=== PATIENT | male | born 1980 | race Two or more races ===

== ENCOUNTER 2018-11-23 21:14 | Emergency (ER) | payer OTHER ==
[2018-11-24] MEDS ORDERED: OXYCODONE-ACETAMINOPHEN 5-325 MG TABLET PO ONE (01:14)
[2018-11-24] MEDS ORDERED: ONDANSETRON 4 MG TAB.RAPDIS PO ONE (01:14)
--- NOTE | 2018-11-24 01:16 | ER Document Report ---
ED Medical Screen (RME) - General Chief Complaint: Flank Pain Stated Complaint: KIDNEY PROBLEMS/BLOOD IN URINE/STOOL Time Seen by Provider: 11/24/18 01:01 Notes: 38-year-old male, chief complaint of flank pain and hematuria. This is been going on since Wednesday. Pain is intermittently sharp. He also states he thinks he is having blood in his bowel movements. He is on Coumadin. He is visiting up here from [place]. He does have a history of kidney stones reportedly. - Related Data Allergies/Adverse Reactions: No Known Allergies Allergy (Unverified 11/23/18 21:17) Physical Exam - General General appearance: Appears well In distress: None - Back Back: Tender - Complains with right CVA palpation Course - Re-evaluation Re-evalutation: Patient does not appear to be in distress, however he is complaining of pain, borderline right CVA tenderness, reporting hematuria as well. Also on Coumadin. Workup pending. I have greeted and performed a rapid initial assessment of this patient. A co mprehensive ED assessment and evaluation of the patient, analysis of test results and completion of the medical decision making process will be conducted by additional ED providers.
[2018-11-24] MEDS ORDERED: OXYCODONE-ACETAMINOPHEN 5-325 MG TABLET ONE (01:26)
[2018-11-24 02:22] LABS: ABSOLUTE BASOPHILS # (AUTO) 0.1 10^3/uL (0.0-0.2); ABSOLUTE EOSINOPHILS # (AUTO) 0.6 10^3/uL (0.0-0.6); ABSOLUTE LYMPHOCYTES (AUTO) 4.3 10^3/uL (0.5-4.7); ABSOLUTE MONOCYTES (AUTO) 0.9 10^3/uL (0.1-1.4); ABSOLUTE NEUT (AUTO) 5.7 10^3/uL (1.7-8.2); BASOPHILS % (AUTO) 0.9 % (0-2); EOSINOPHILS % (AUTO) 5.2 % (0-6); HEMOGLOBIN 19.4 g/dL (13.5-17.0); LYMPHOCYTES % (AUTO) 37.2 % (13-45); MEAN CORPUSCULAR HEMOGLOBIN 28.7 pg (27.0-33.4); MEAN CORPUSCULAR HGB CONC 33.7 g/dL (32.0-36.0); MEAN CORPUSCULAR VOLUME 85 fl (80-97); MONOCYTES % (AUTO) 7.4 % (3-13); PLATELET COUNT 212 10^3/uL (150-450); RED BLOOD COUNT 6.76 10^6/uL (4.35-5.55); RED CELL DISTRIBUTION WIDTH 16.5 % (11.5-14.0); SEGMENTED NEUTROPHILS % (AUTO) 49.3 % (42-78); TOTAL CELLS COUNTED % (AUTO) 100 %; WHITE BLOOD COUNT 11.6 10^3/uL (4.0-10.5)
[2018-11-24 02:24] LABS: HEMATOCRIT 57.6 % (37.9-51.0)
[2018-11-24 02:28] LABS: INTERNATIONAL RATION (INR) 0.89; PROTHROMBIN TIME 12.5 SEC (11.4-15.4)
[2018-11-24 02:40] LABS: APPEARANCE,URINE SLIGHTLY-CLOUDY; BILIRUBIN,URINE NEGATIVE (NEGATIVE); COLOR,URINE YELLOW; GLUCOSE, URINE NEGATIVE (NEGATIVE); KETONES,URINE NEGATIVE (NEGATIVE); LEUKOCYTE ESTERASE,URINE NEGATIVE (NEGATIVE); NITRITE,URINE NEGATIVE (NEGATIVE); PROTEIN,URINE >=500 mg/dL (NEGATIVE); URINE SPECIFIC GRAVITY 1.012; UROBILINOGEN,URINE NEGATIVE mg/dL (<2.0)
[2018-11-24 02:42] LABS: ALANINE AMINOTRANSFERASE 39 U/L (21-72); ALKALINE PHOSPHATASE 62 U/L (38-126); ANION GAP 6 (5-19); ASPARTATE AMINO TRANSFERASE 35 U/L (17-59); BILIRUBIN,DIRECT 0.2 mg/dL (0.0-0.4); BILIRUBIN,TOTAL 0.3 mg/dL (0.2-1.3); BLOOD UREA NITROGEN 18 mg/dL (7-20); CALCIUM 9.5 mg/dL (8.4-10.2); CARBON DIOXIDE 25 mmol/L (22-30); CHLORIDE 108 mmol/L (98-107); GLUCOSE 122 mg/dL (75-110); POTASSIUM 4.3 mmol/L (3.6-5.0); SODIUM 138.8 mmol/L (137-145); TOTAL PROTEIN 5.8 g/dL (6.3-8.2)
--- NOTE | 2018-11-24 03:27 | RADIOLOGY REPORT (SQ) ---
EXAM DESCRIPTION: CT ABDOMEN PELVIS WITHOUT IV CONTRAST COMPLETED DATE/TME: 11/24/2018 01:12 CLINICAL HISTORY: 38 years Male, BILAT flank pain, hematuria Comparison: None. Technique: No contrast. Coronal and sagittal reformat. This exam was performed according to our departmental dose-optimization program, which includes automated exposure control, adjustment of the mA and/or kV according to patient size and/or use of iterative reconstruction technique.[facility]: Dose Right [facility]: CareDose [facility]: Dose Right [facility]: Teradose 4D [facility]: [employer] LIMITATIONS: None Findings: Bilateral mild perinephric fat stranding, nonspecific. Colonic fluid retention. Moderate, asymmetric, wide posterior L5-S1 disc protrusion-osteophyte complex, left more than right causes moderate to severe left L5 foraminal stenosis and mild-moderate spinal and right foraminal stenosis. No ascites. No pneumoperitoneum. No bowel obstruction. No hydronephrosis or hydroureter. No renal/ureteral stone. Normal appendix. No gross evidence of gallbladder inflammation or hepatobiliary obstruction. No evidence of abdominal aortic aneurysm. Unenhanced lower thorax, abdominopelvic structures, and musculoskeleton appear otherwise grossly unremarkable. Impression: 1. Moderate L5-S1 disc protrusion causes moderate-severe left L5 foraminal stenosis. 2. Mild nonspecific perinephric fat stranding bilaterally. Different diagnosis includes pyelonephritis and chronic medical renal disease.
--- NOTE | 2018-11-24 03:30 | ER Document Report ---
ED GI/ - General Chief Complaint: Flank Pain Stated Complaint: KIDNEY PROBLEMS/BLOOD IN URINE/STOOL Time Seen by Provider: 11/24/18 01:01 Notes: Patient is a 38 year old male that comes to the emergency department for chief complaint of flank pain and hematuria. He states this is been going on since Wednesday. Pain is intermittently sharp. He states he also thinks he is having blood in his bowel movements, he has had some black bowel movements since Wednesday. He is on Coumadin, he states that this was because he had blood clots, he has been on this for the past 2 months, however he states he ran out of his Coumadin and regular medications. He also reports a history of kidney stones. His primary care provider is in [place]. - Related Data Allergies/Adverse Reactions: No Known Allergies Allergy (Unverified 11/23/18 21:17) Past Medical History - General Information source: Patient - Social History Smoking Status: Never Smoker Frequency of alcohol use: None Drug Abuse: None Lives with: Family Family History: Reviewed & Not Pertinent - Past Medical History Cardiac Medical History: Reports: Hx DVT, Hx Hypercholesterolemia, Hx Hypertensi on Renal/ Medical History: Reports: Hx Kidney Stones GI Medical History: Reports: Hx Gastroesophageal Reflux Disease - Immunizations Immunizations up to date: Yes Hx Diphtheria, Pertussis, Tetanus Vaccination: Yes Review of Systems - Review of Systems Constitutional: No symptoms reported EENT: No symptoms reported Cardiovascular: No symptoms reported Respiratory: No symptoms reported Gastrointestinal: See HPI Genitourinary: See HPI Male Genitourinary: No symptoms reported Musculoskeletal: No symptoms reported Skin: No symptoms reported Hematologic/Lymphatic: No symptoms reported Neurological/Psychological: No symptoms reported Physical Exam - Vital signs Vitals: Temp Pulse Resp BP Pulse Ox 97.5 F 66 20 136/89 H 97 11/24/18 05:20 11/24/18 05:20 11/24/18 05:20 11/24/18 05:20 11/24/18 05:20 - Notes Notes: GENERAL: Alert, interacts well. No acute distress. HEAD: Normocephalic, atraumatic. EYES: Pupils equal, round, and reactive to light. Extraocular movements intact. ENT: Oral mucosa moist, tongue midline. Oropharynx unremarkable. Airway patent. Nares patent, no nasal septal hematoma, TM's intact. NECK: Full range of motion. Supple. Trachea midline. LUNGS: Clear to auscultation bilaterally, no wheezes, rales, or rhonchi. No respiratory distress. HEART: Regular rate and rhythm. No murmur ABDOMEN: Soft, non-tender. Non-distended. Bowel sounds present in all 4 quadrants. GENITOURINARY: Deferred EXTREMITIES: Moves all 4 extremities spontaneously. No edema, normal radial and dorsalis pedis pulses bilaterally. No cyanosis. BACK: no cervical, thoracic, lumbar midline tenderness. No saddle anesthesia, normal distal neurovascular exam. No tenderness in the back on second examination. NEUROLOGICAL: Alert and oriented x3. Normal speech. [cranial nerves II through XII grossly intact]. PSYCH: Normal affect, normal mood. SKIN: Warm, dry, normal turgor. No rashes or lesions noted. Course - Re-evaluation Re-evalutation: Patient does not appear to be in distress, he was given pain medication and nausea medication. He is smiling and well-appearing afterwards. Vital signs unremarkable. Lungs clear, abdomen does not show any tenderness. Denies any neurological deficits. No deficits noted on exam. CBC shows elevated hemoglobin, otherwise unremarkable. Chemistry nonspecific. Urinalysis does not show concerning infection or hematuria. Patient is not telling me that he has been having black stools. Patient had a bowel movement, this was obtained, this was not black as patient was stating, this was not bloody, Hemoccult negative. PT/INR does show that patient is not therapeutic, however he has not had a prescription of his warfarin for some time, he has not made it back to his provider. He does not have tachycardia, tachypnea, hypoxia, or respiratory complaints on my evaluation. As result I do not suspect pulmonary embolism. CAT scan does not show chronic kidney stone, does show some stranding around the kidneys but urinalysis does not show infection, patient is asymptomatic on reevaluation. Degenerative changes in the back noted. Patient stating that he had worse flank pain before and hematuria although hematuria has now resolved. Possibly already passed a stone. I discussed results with patient in detail. Patient is requesting to have all of his main prescriptions refilled, he will follow-up with his primary care. Discussed return precautions in detail. Patient states understanding and agreement. - Vital Signs Vital signs: Temp Pulse Resp BP Pulse Ox 97.5 F 66 20 136/89 H 97 04/11/19 05:20 11/24/18 05:20 11/24/18 05:20 11/24/18 05:20 11/24/18 05:20 - Laboratory Result Diagrams: 11/24/18 00:45 11/24/18 00:45 Laboratory results interpreted by me: 11/24/18 11/24/18 11/24/18 00:45 00:45 02:00 WBC 11.6 H RBC 6.76 H Hgb 19.4 H Hct 57.6 H RDW 16.5 H Chloride 108 H Glucose 122 H Total Protein 5.8 L Albumin 3.0 L Urine Protein >=500 H Urine Blood SMALL H Discharge - Discharge Clinical Impression: Flank pain, Has run out of medications Condition: Stable Disposition: HOME, SELF-CARE Additional Instructions: You are not currently passing any kidney stones. I suspect based on your recent symptoms that you did pass a kidney stone and have had some pain from this but no current concerning findings are noted. There is no blood in your stool tonight. Refill and take your prescribed medications. Follow-up with your primary care provider. Return if you worsen including fever, vomiting, severe pain, or any other concerning or worsening symptoms. Prescriptions: Carvedilol [Coreg 3.125 mg Tablet] 3.125 mg PO Q12 #60 tablet Furosemide [Lasix 20 mg Tablet] 20 mg PO BID #60 tablet Metformin HCl [Glucophage 500 mg Tablet] 500 mg PO BIDACBS #60 tab Sildenafil Citrate [Revatio 20 mg Tablet] 20 mg PO TID #60 tablet Warfarin Sodium 5 mg PO DAILY #30 tablet
[2018-11-24 05:36] VITALS: BP 136/89
== END 2018-11-24 05:35 | disposition home or self-care (01) ==
LOC: ER 21:14
DX: R10.9 Unspecified abdominal pain (principal); R31.9 Hematuria, unspecified; M47.9 Spondylosis, unspecified; I10 Essential (primary) hypertension; Z86.718 Personal history of other venous thrombosis and embolism; Z91.14 Patient's other noncompliance with medication regimen; Z87.442 Personal history of urinary calculi; Z87.19 Personal history of other diseases of the digestive system
CPT/HCPCS: 99284; 36415; 85025; 85610; 82272; 80053; 81001; 74176; S0119

== ENCOUNTER 2019-07-10 07:43 | Emergency (ER) | payer MEDICAID, OTHER ==
[2019-07-10 08:24] LABS: ABSOLUTE BASOPHILS # (AUTO) 0.1 10^3/uL (0.0-0.2); ABSOLUTE EOSINOPHILS # (AUTO) 0.4 10^3/uL (0.0-0.6); ABSOLUTE LYMPHOCYTES (AUTO) 2.1 10^3/uL (0.5-4.7); ABSOLUTE MONOCYTES (AUTO) 0.5 10^3/uL (0.1-1.4); BASOPHILS % (AUTO) 1.1 % (0-2); EOSINOPHILS % (AUTO) 6.2 % (0-6); HEMOGLOBIN 19.9 g/dL (13.5-17.0); LYMPHOCYTES % (AUTO) 29.9 % (13-45); MEAN CORPUSCULAR HEMOGLOBIN 30.3 pg (27.0-33.4); MEAN CORPUSCULAR VOLUME 89 fl (80-97); MONOCYTES % (AUTO) 7.1 % (3-13); PLATELET COUNT 187 10^3/uL (150-450); RED BLOOD COUNT 6.57 10^6/uL (4.35-5.55); RED CELL DISTRIBUTION WIDTH 14.1 % (11.5-14.0); SEGMENTED NEUTROPHILS % (AUTO) 55.7 % (42-78); TOTAL CELLS COUNTED % (AUTO) 100 %; WHITE BLOOD COUNT 7.1 10^3/uL (4.0-10.5)
[2019-07-10 08:27] LABS: HEMATOCRIT 58.5 % (37.9-51.0)
[2019-07-10 08:52] LABS: ALBUMIN 3.5 g/dL (3.5-5.0); ALKALINE PHOSPHATASE 64 U/L (38-126); ANION GAP 6 (5-19); ASPARTATE AMINO TRANSFERASE 33 U/L (17-59); BILIRUBIN,DIRECT 0.1 mg/dL (0.0-0.4); BILIRUBIN,TOTAL 1.1 mg/dL (0.2-1.3); BLOOD UREA NITROGEN 13 mg/dL (7-20); CALCIUM 9.2 mg/dL (8.4-10.2); CARBON DIOXIDE 26 mmol/L (22-30); CHLORIDE 105 mmol/L (98-107); GLUCOSE 99 mg/dL (75-110); POTASSIUM 4.7 mmol/L (3.6-5.0); TOTAL PROTEIN 6.5 g/dL (6.3-8.2)
[2019-07-10 09:45] LABS: APPEARANCE,URINE CLEAR; BILIRUBIN,URINE NEGATIVE (NEGATIVE); COLOR,URINE YELLOW; GLUCOSE, URINE NEGATIVE (NEGATIVE); KETONES,URINE NEGATIVE (NEGATIVE); LEUKOCYTE ESTERASE,URINE NEGATIVE (NEGATIVE); NITRITE,URINE NEGATIVE (NEGATIVE); PROTEIN,URINE >=500 mg/dL (NEGATIVE); URINE SPECIFIC GRAVITY 1.014; UROBILINOGEN,URINE NEGATIVE mg/dL (<2.0)
--- NOTE | 2019-07-10 09:48 | RADIOLOGY REPORT (SQ) ---
EXAM DESCRIPTION: CHEST SINGLE VIEW COMPLETED DATE/TIME: 07/10/2019 9:19 am REASON FOR STUDY: Short of breath, prior pulmonary embolus. COMPARISON: None. EXAM PARAMETERS: NUMBER OF VIEWS: One view. TECHNIQUE: Single frontal radiographic view of the chest acquired. RADIATION DOSE: NA LIMITATIONS: None. FINDINGS: LUNGS AND PLEURA: No opacities, masses or pneumothorax. No pleural effusion. MEDIASTINUM AND HILAR STRUCTURES: No masses. Contour normal. HEART AND VASCULAR STRUCTURES: Heart normal in size. Normal vasculature. BONES: No acute findings. HARDWARE: None in the chest. OTHER: No other significant finding. IMPRESSION: NO ACUTE RADIOGRAPHIC FINDING IN THE CHEST. TECHNICAL DOCUMENTATION: JOB ID: [id number] [employer]- All Rights Reserved Reading location - IP/workstation name: [email or web address]
[2019-07-10 11:29] VITALS: BP 163/90
--- NOTE | 2019-07-10 15:10 | ER Document Report ---
Entered by FRANCISCO HOLLEY SCRIBE 07/10/19 0907 Acting as scribe for:JACY FERRER MD ED General - General Chief Complaint: Shortness Of Breath Stated Complaint: RIGHT FLANK PAIN, SHORT OF BREATH Time Seen by Provider: 07/10/19 08:30 Primary Care Provider: [facility] [Provider Group] - Follow up as needed [facility] [Outside] - Follow up as needed JUSTIN CARMONA MD [ACTIVE STAFF] - Follow up in 1 week Mode of Arrival: Ambulatory Information source: Patient Notes: This 39 year old male patient presents to the emergency department today with complaints of "feeling bad in my kidneys". Patient complains of low back pain that is musculoskeletal in nature, reproducible with certain movements and palpation. PCP: [facility] - Related Data Allergies/Adverse Reactions: No Known Allergies Allergy (Unverified 11/23/18 21:17) Home Medications: Carvedilol. Warafin. furosemide. sildenafil. ampicillin Past Medical History - General Information source: Patient - Social History Smoking Status: Never Smoker Cigarette use (# per day): No Chew tobacco use (# tins/day): No Smoking Education Provided: No Frequency of alcohol use: None Drug Abuse: Marijuana Lives with: Friend Family History: Reviewed & Not Pertinent Patient has suicidal ideation: No Patient has homicidal ideation: No - Past Medical History Cardiac Medical History: Reports: Hx DVT, Hx Hypercholesterolemia, Hx Hypertension, Hx Pulmonary Embolism Endocrine Medical History: Reports: Hx Diabetes Mellitus Type 2 Renal/ Medical History: Reports: Hx Kidney Stones GI Medical History: Reports: Hx Gastroesophageal Reflux Disease Surgical Hx: Negative - Immunizations Immunizations up to date: Yes Hx Diphtheria, Pertussis, Tetanus Vaccination: Yes Review of Systems - Review of Systems Constitutional: No symptoms reported EENT: No symptoms reported Cardiovascular: No symptoms reported Respiratory: No symptoms reported Gastrointestinal: No symptoms reported Genitourinary: No symptoms reported Male Genitourinary: No symptoms reported Musculoskeletal: See HPI, Back pain Skin: No symptoms reported Hematologic/Lymphatic: No symptoms reported Neurological/Psychological: No symptoms reported -: Yes All other systems reviewed and negative Physical Exam - Vital signs Vitals: Temp Pulse Resp BP Pulse Ox 97.3 F 74 22 H 152/91 H 99 07/10/19 07:49 07/10/19 07:49 07/10/19 07:49 07/10/19 07:49 07/10/19 07:49 - Notes Notes: Physical Exam: General: Alert, appears well. HEENT: Normocephalic. Atraumatic. PERRL. Extraocular movements intact. Oropharynx clear. Neck: Supple. Non-tender. Respiratory: No respiratory distress. Clear and equal breath sounds bilaterally. Cardiovascular: Regular rate and rhythm. Abdominal: Normal Inspection. Non-tender. No distension. Normal Bowel Sounds. Back: Lower lumbar musculature tenderness with palpation. Extremities: Moves all four extremities. Upper extremities: Normal inspection. Normal ROM. Lower extremities: Normal inspection. No edema. Normal ROM. Neurological: Normal cognition. AAOx4. Normal speech. Psychological: Normal affect. Normal Mood. Skin: Warm. Dry. Normal color. Course - Re-evaluation Re-evalutation: 07/10/19 10:09 Patient's chest x-ray is normal. The d-dimer is undetectable. Patient's hemoglobin is 19.9 Physical exam is most consistent with lumbar back muscle pain. I have advised the patient that he needs to go to donate blood at least 4 times a year due to his polycythemia and the risk it places him for blood clots, heart attack, and stroke. I do not think he needs to be on Coumadin at this time, as the pulmonary embolus event was 2 years ago at least, he has no medical care follow-up, he has no way of monitoring his INRs, and he is a very unreliable patient. I also do not think that he should be on Lasix due to his polycythemia. He should be on a blood pressure medication, I am not sure why he was on carvedilol and he does not know. 07/10/19 10:36 The patient's nurse came in who is fluent in Thai and help me review all the findings and plans for the patient. By the patient's history, no one has ever spoken him about his polycythemia, or need to have regular phlebotomy. He will be referred to Dr. Carmona from hematology, but I am not sure if he will ever go to see him. He will be referred to the [facility] or the [facility] for ongoing medical care. He is encouraged to donate blood at least 4 times a year if he does not see the manager requirements. He will be placed on lisinopril for his blood pressure. - Vital Signs Vital signs: Temp Pulse Resp BP Pulse Ox 98.0 F 63 16 163/90 H 96 07/10/19 11:24 07/10/19 11:24 07/10/19 11:24 07/10/19 11:24 07/10/19 11:24 - Laboratory Result Diagrams: 07/10/19 08:15 07/10/19 08:15 Laboratory results interpreted by me: 07/10/19 07/10/19 08:15 09:30 RBC 6.57 H Hgb 19.9 H Hct 58.5 H RDW 14.1 H Eos % (Auto) 6.2 H Urine Protein >=500 H Urine Blood SMALL H - Diagnostic Test Radiology reviewed: Image reviewed, Reports reviewed - Chest x-ray does not show acute findings. Discharge - Discharge Clinical Impression: Polycythemia Low back pain Qualifiers: Chronicity: acute Back pain laterality: right Sciatica presence: without sciatica Qualified Code(s): M54.5 - Low back pain High blood pressure Qualifiers: Hypertension type: essential hypertension Qualified Code(s): I10 - Essential (primary) hypertension Condition: Stable Disposition: HOME, SELF-CARE Additional Instructions: Low Back Pain: Three out of every four people will have an episode of disabling back pain during their lifetime. Most commonly the pain is due to straining of the muscles and ligaments in the low back. Usual treatment includes: (1) Rest on a firm surface. Avoid lying on your stomach. (2) Ice pack the painful area. After a few days, gentle heat may be used intermittently to relax the area, or ice packs can be continued. (3) Medication may be needed -- antiinflammatory medicines such as ibuprofen or Aleve are commonly used. (4) As the back improves, exercises are prescribed to strengthen the back and abdominal muscles. Your doctor will advise you on the proper care for your back at each stage in your recovery. You may be better in a few days -- or healing may take several weeks. If new symptoms of a "herniated disc" (radiation of pain, numbness, or tingling down the back of the leg or weakness in the leg) occur, you should be re-examined. Further testing may be necessary. Your physical exam today shows that your low back pain is due to a lumbar back muscle strain. Your blood work shows that you have a condition called polycythemia which is due to an excessive number of red blood cells. This can be a dangerous condition putting you at risk for heart attack, stroke and blood clots. Your blood sugars are normal, so you probably do not need to be taking the metformin you used to take. The Lasix will be stopped because you do not have any edema, and taking Lasix may cause your blood to become even thicker. You will be placed on lisinopril for your blood pressure. You should try to follow-up with Dr. Carmona, a local manager requirements for management of your polycythemia. Follow-up with the [facility] or the [facility] for management of your high blood pressure and any other medical problems. RETURN TO THE EMERGENCY ROOM IF ANY NEW OR WORSENING SYMPTOMS. Prescriptions: Lisinopril 20 mg PO DAILY #30 tablet Referrals: JUSTIN CARMONA MD [ACTIVE STAFF] - Follow up in 1 week [facility] [Outside] - Follow up as needed [facility] [Provider Group] - Follow up as needed Scribe Attestation: 07/10/19 10:41 I personally performed the services described in the documentation, reviewed and edited the documentation which was dictated to the scribe in my presence, and it accurately records my words and actions. I personally performed the services described in the documentation, reviewed and edited the documentation which was dictated to the scribe in my presence, and it accurately records my words and actions.
== END 2019-07-10 11:33 | disposition home or self-care (01) ==
LOC: ER 07:43
DX: M54.5 Low back pain (principal); D75.1 Secondary polycythemia; I10 Essential (primary) hypertension; E11.9 Type 2 diabetes mellitus without complications; F12.10 Cannabis abuse, uncomplicated; Z86.711 Personal history of pulmonary embolism; Z86.718 Personal history of other venous thrombosis and embolism; Z79.01 Long term (current) use of anticoagulants; Z79.899 Other long term (current) drug therapy; Z79.2 Long term (current) use of antibiotics
CPT/HCPCS: 36415; 71045; 80053; 81001; 83690; 85025; 85379; 99283

== ENCOUNTER 2020-08-11 11:06 | Emergency (ER) | payer MEDICAID, OTHER ==
[2020-08-11] MEDS ORDERED: ACETAMINOPHEN 325 MG TABLET PO ONE (13:03)
--- NOTE | 2020-08-11 13:03 | ER Document Report ---
ED Medical Screen (RME) - General Chief Complaint: Back Pain Stated Complaint: LOW BACK PAIN,BLOOD IN URINE Time Seen by Provider: 08/11/20 12:54 Mode of Arrival: Ambulatory Notes: 40-year-old male presented to ED for complaint of bilateral flank pain blood in his urine. He is a former dialysis patient. He does smoke a third a pack a day drinks on the weekends uses marijuana. [place] from [place] work. Patient is alert oriented respirations regular nonlabored speaking in full sentences. I have ordered blood urine and CT abdomen pelvis with no contrast. I have greeted and performed a rapid initial assessment of this patient. A comprehensive ED assessment and evaluation of the patient, analysis of test results and completion of medical decision making process will be conducted by an additional ED providers. - Related Data Allergies/Adverse Reactions: No Known Allergies Allergy (Verified 08/11/20 12:52) Past Medical History - Social History Chew tobacco use (# tins/day): No Frequency of alcohol use: None Drug Abuse: None - Past Medical History Cardiac Medical History: Reports: Hx DVT, Hx Hypercholesterolemia, Hx Hypertension, Hx Pulmonary Embolism Endocrine Medical History: Reports: Hx Diabetes Mellitus Type 2 Renal/ Medical History: Reports: Hx Kidney Stones. Denies: Hx Peritoneal Dialysis GI Medical History: Reports: Hx Gastroesophageal Reflux Disease - Immunizations Immunizations up to date: Yes Hx Diphtheria, Pertussis, Tetanus Vaccination: Yes Physical Exam - Vital signs Vitals: Temp Pulse Resp BP Pulse Ox 98.0 F 80 20 194/96 H 97 08/11/20 11:10 08/11/20 11:10 08/11/20 11:10 08/11/20 11:10 08/11/20 11:10 Course - Vital Signs Vital signs: Temp Pulse Resp BP Pulse Ox 98.0 F 80 20 194/96 H 97 08/11/20 11:10 08/11/20 11:10 08/11/20 11:10 08/11/20 11:10 08/11/20 11:10
[2020-08-11 13:48] LABS: APPEARANCE,URINE SLIGHTLY-CLOUDY; BILIRUBIN,URINE NEGATIVE (NEGATIVE); COLOR,URINE YELLOW; GLUCOSE, URINE 50 mg/dL (NEGATIVE); KETONES,URINE NEGATIVE (NEGATIVE); LEUKOCYTE ESTERASE,URINE NEGATIVE (NEGATIVE); NITRITE,URINE NEGATIVE (NEGATIVE); PROTEIN,URINE >=500 mg/dL (NEGATIVE); URINE SPECIFIC GRAVITY 1.015; UROBILINOGEN,URINE NEGATIVE mg/dL (<2.0)
--- NOTE | 2020-08-11 13:48 | RADIOLOGY REPORT (SQ) ---
EXAM DESCRIPTION: CT ABD/PELVIS NO ORAL OR IV IMAGES COMPLETED DATE/TIME: 08/11/2020 12:30 pm REASON FOR STUDY: Bilateral flank pain former dialysis patient COMPARISON: 11/24/2018 TECHNIQUE: CT scan of the abdomen and pelvis performed without intravenous or oral contrast. Images reviewed with lung, soft tissue, and bone windows. Reconstructed coronal and sagittal MPR images revi ewed. All images stored on PACS. All CT scanners at this facility use dose modulation, iterative reconstruction, and/or weight based d osing when appropriate to reduce radiation dose to as low as reasonably achievable (ALARA). [facility]: Dose Right [facility]: CareDose [facility]: Dose Right [facility]: Teradose 4D [facility]: [employer] RADIATION DOSE: CT Rad equipment meets quality standard of care and radiation dose reduction techniq ues were employed. CTDIvol: 11.5 mGy. DLP: 606 mGy-cm.mGy. LIMITATIONS: None. FINDINGS: LOWER CHEST: No significant findings. No nodules or infiltrates. NON-CONTRASTED LIVER, SPLEEN, ADRENALS: Evaluation limited by lack of IV contrast. No identified sign ificant masses. PANCREAS: No masses. No peripancreatic inflammatory changes. GALLBLADDER: No identified stones by CT criteria. No inflammatory changes to suggest cholecystitis. RIGHT KIDNEY AND URETER: No suspicious masses. Assessment limited by lack of IV contrast. No signif icant calcifications. No hydronephrosis or hydroureter. LEFT KIDNEY AND URETER: No suspicious masses. Assessment limited by lack of IV contrast. No signifi cant calcifications. No hydronephrosis or hydroureter. AORTA AND RETROPERITONEUM: No aneurysm. No retroperitoneal masses or adenopathy. BOWEL AND PERITONEAL CAVITY: No obvious masses or inflammatory changes. No free fluid. APPENDIX: Normal. PELVIS, BLADDER, AND ABDOMINAL WALL:Calcified pelvic phleboliths. Urinary bladder has normal contour . No bladder wall thickening or intraluminal bladder mass. Prostate has normal size. No pelvic jacey nopathy or free fluid. BONES: No significant findings. OTHER: No other significant finding. IMPRESSION: NO SIGNIFICANT OR ACUTE PROCESS IN THE ABDOMEN OR PELVIS. COMMENT: Quality ID # [id number]: Final reports with documentation of one or more dose reduction techniques (e.g., Automated exposure control, adjustment of the mA and/or kV according to patient size, use of iterative reconstruction technique) TECHNICAL DOCUMENTATION: JOB ID: [id number] 2010 [employer]- All Rights Reserved Reading location - IP/workstation name: [email or web address]
[2020-08-11 13:51] LABS: ABSOLUTE BASOPHILS # (AUTO) 0.1 10^3/uL (0.0-0.2); ABSOLUTE EOSINOPHILS # (AUTO) 0.4 10^3/uL (0.0-0.6); ABSOLUTE LYMPHOCYTES (AUTO) 2.1 10^3/uL (0.5-4.7); ABSOLUTE MONOCYTES (AUTO) 0.5 10^3/uL (0.1-1.4); ABSOLUTE NEUT (AUTO) 4.5 10^3/uL (1.7-8.2); BASOPHILS % (AUTO) 1.1 % (0-2); HEMOGLOBIN 19.2 g/dL (13.5-17.0); LYMPHOCYTES % (AUTO) 28.1 % (13-45); MEAN CORPUSCULAR HGB CONC 33.8 g/dL (32.0-36.0); MEAN CORPUSCULAR VOLUME 89 fl (80-97); PLATELET COUNT 196 10^3/uL (150-450); RED CELL DISTRIBUTION WIDTH 13.9 % (11.5-14.0); SEGMENTED NEUTROPHILS % (AUTO) 58.8 % (42-78); TOTAL CELLS COUNTED % (AUTO) 100 %; WHITE BLOOD COUNT 7.6 10^3/uL (4.0-10.5)
[2020-08-11 14:01] LABS: HEMATOCRIT 56.8 % (37.9-51.0)
[2020-08-11 14:06] LABS: ALBUMIN 3.7 g/dL (3.5-5.0); ALKALINE PHOSPHATASE 68 U/L (38-126); ASPARTATE AMINO TRANSFERASE 23 U/L (17-59); BILIRUBIN,DIRECT 0.1 mg/dL (0.0-0.4); BILIRUBIN,TOTAL 0.5 mg/dL (0.2-1.3); BLOOD UREA NITROGEN 11 mg/dL (7-20); CALCIUM 9.2 mg/dL (8.4-10.2); CARBON DIOXIDE 28 mmol/L (22-30); CREATINE KINASE 109 U/L (55-170); GLUCOSE 85 mg/dL (75-110); POTASSIUM 4.8 mmol/L (3.6-5.0); TOTAL PROTEIN 6.7 g/dL (6.3-8.2)
[2020-08-11 14:11] LABS: CHLORIDE 106 mmol/L (98-107)
[2020-08-11 14:13] LABS: ANION GAP 2 (5-19)
[2020-08-11] MEDS ORDERED: METOPROLOL TARTRATE 25 MG TABLET PO ONE (15:52)
[2020-08-11] MEDS ORDERED: HYDROCODONE/ACETAMINOPHEN 5-325 MG TABLET PO ONE (15:53)
--- NOTE | 2020-08-11 16:19 | RADIOLOGY REPORT (SQ) ---
EXAM DESCRIPTION: CT HEAD WITHOUT IMAGES COMPLETED DATE/TIME: 08/11/2020 4:03 pm REASON FOR STUDY: headache dizzyness COMPARISON: Additional sagittal and coronal reconstructions were generated. TECHNIQUE: Axial images acquired through the brain without intravenous contrast. Images reviewed wi th bone, brain and subdural windows. Additional sagittal and coronal reconstructions were generated. Images stored on PACS. All CT scanners at this facility use dose modulation, iterative reconstruction, and/or weight based d osing when appropriate to reduce radiation dose to as low as reasonably achievable (ALARA). [facility]: Dose Right [facility]: CareDose [facility]: Dose Right [facility]: Teradose 4D [facility]: [employer] RADIATION DOSE: CT Rad equipment meets quality standard of care and radiation dose reduction techniq ues were employed. CTDIvol: 48.8 mGy. DLP: 909 mGy-cm. mGy. LIMITATIONS: None. FINDINGS: VENTRICLES: Normal size and contour. CEREBRUM: No masses. No hemorrhage. No midline shift. No evidence for acute infarction. Normal gra y/white matter differentiation. No areas of low density in the white matter. CEREBELLUM: No masses. No hemorrhage. No alteration of density. No evidence for acute infarction. EXTRAAXIAL SPACES: No fluid collections. No masses. ORBITS AND GLOBE: No intra- or extraconal masses. Normal contour of globe without masses. CALVARIUM: No fracture. PARANASAL SINUSES: No fluid or mucosal thickening. SOFT TISSUES: No mass or hematoma. OTHER: No other significant finding. IMPRESSION: NORMAL BRAIN CT WITHOUT CONTRAST. EVIDENCE OF ACUTE STROKE: NO. COMMENT: Quality ID # [id number]: Final reports with documentation of one or more dose reduction techniques (e.g., Automated exposure control, adjustment of the mA and/or kV according to patient size, use of iterative reconstruction technique) TECHNICAL DOCUMENTATION: JOB ID: [id number] 2010 [employer]- All Rights Reserved Reading location - IP/workstation name: [email or web address]
--- NOTE | 2020-08-11 16:47 | ER Document Report ---
Entered by ANGELICA WARE SCRIBE 08/11/20 1543 Acting as scribe for:LIZ PARKER DO ED General - General Chief Complaint: Back Pain Stated Complaint: LOW BACK PAIN,BLOOD IN URINE Time Seen by Provider: 08/11/20 12:54 Mode of Arrival: Ambulatory Information source: Patient Notes: This 40 year old male patient presents to the emergency department today with complaints of left back pain and occasional dizziness. Patient reports taking Tylenol without relief and has history of arthritis in his back. Patient reports kidney failure in 2016 in [place] and has not had any check ups for the past 1-2 years. 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 Patient states he sometimes gets headaches and reports history of HTN, HLD, and DM2, but has not been on any medications for these for 1-2 years. - Related Data Allergies/Adverse Reactions: No Known Allergies Allergy (Verified 08/11/20 12:52) Past Medical History - General Information source: Patient - Social History Smoking Status: Current Every Day Smoker Cigarette use (# per day): Yes Chew tobacco use (# tins/day): No Frequency of alcohol use: None Drug Abuse: None Family History: Reviewed & Not Pertinent - Past Medical History Cardiac Medical History: Reports: Hx DVT, Hx Hypercholesterolemia, Hx Hypertension, Hx Pulmonary Embolism Endocrine Medical History: Reports: Hx Diabetes Mellitus Type 2 Renal/ Medical History: Reports: Hx Kidney Stones GI Medical History: Reports: Hx Gastroesophageal Reflux Disease Musculoskeletal Medical History: Reports Hx Arthritis - back Psychiatric Medical History: Reports: Hx Schizophrenia - Immunizations Immunizations up to date: Yes Hx Diphtheria, Pertussis, Tetanus Vaccination: Yes Review of Systems - Review of Systems Constitutional: No symptoms reported EENT: No symptoms reported Cardiovascular: See HPI, Dizziness Respiratory: See HPI, Short of breath Gastrointestinal: No symptoms reported Genitourinary: No symptoms reported Male Genitourinary: No symptoms reported Musculoskeletal: See HPI, Back pain - L Skin: No symptoms reported Hematologic/Lymphatic: No symptoms reported Neurological/Psychological: See HPI, Headaches -: Yes All other systems reviewed and negative Physical Exam - Vital signs Vitals: Temp Pulse Resp BP Pulse Ox 98.0 F 80 20 194/96 H 97 08/11/20 11:10 08/11/20 11:10 08/11/20 11:10 08/11/20 11:10 08/11/20 11:10 - General General appearance: Appears well, Alert - HEENT Head: Normocephalic, Atraumatic Eyes: Normal Pupils: PERRL - Respiratory Respiratory status: No respiratory distress Chest status: Nontender Breath sounds: Normal Chest palpation: Normal - Cardiovascular Rhythm: Regular Heart sounds: Normal auscultation Murmur: No - Abdominal Inspection: Obese Distension: No distension Bowel sounds: Normal Tenderness: Nontender - Back Back: Normal, Nontender - Extremities General upper extremity: Normal inspection, Normal ROM General lower extremity: Normal inspection, Normal ROM. No: Edema - Neurological Neuro grossly intact: Yes Cognition: Normal Orientation: AAOx4 [place] Coma Scale Eye Opening: Spontaneous [place] Coma Scale Verbal: Oriented [place] Coma Scale Motor: Obeys Commands [place] Coma Scale Total: 15 Speech: Normal Motor strength normal: LUE, RUE, LLE, RLE Sensory: Normal - Psychological Associated symptoms: Normal affect, Normal mood - Skin Skin Temperature: Warm Skin Moisture: Dry Skin Color: Normal Course - Re-evaluation Re-evalutation: 08/11/20 16:48 MDM 40 year old with known dm, htn a nd low bakc pain. Known ddd in low back. out of meds about 2 years. Discussed imp of taking meds and controlling BP and he expressed understanding. Will refer to pcp locally. No glucophage here with nl glucose and ct and labs are reassuring. He expressed understanding of the importance of follow up. - Vital Signs Vital signs: Temp Pulse Resp BP Pulse Ox 98.1 F 71 18 171/104 H 99 08/11/20 17:30 08/11/20 17:30 08/11/20 17:30 08/11/20 17:30 08/11/20 17:30 - Laboratory Results Result Diagrams: 08/11/20 13:15 08/11/20 13:15 Laboratory Results Interpreted: 08/11/20 08/11/20 08/11/20 13:10 13:15 13:15 RBC 6.40 H Hgb 19.2 H Hct 56.8 H Sodium 136.3 L Anion Gap 2 L Urine Protein >=500 H Urine Glucose (UA) 50 H Critical Laboratory Results Reviewed: No Critical Results - Radiology Results Critical Radiology Results Reviewed: No Critical Results Discharge - Discharge Clinical Impression: Degeneration of intervertebral disc of lumbar region Hypertension Qualifiers: Hypertension type: unspecified Qualified Code(s): I10 - Essential (primary) hypertension Back pain Qualifiers: Back pain location: back pain in other location Chronicity: unspecified Qualified Code(s): M54.89 - Other dorsalgia Condition: Stable Disposition: HOME, SELF-CARE Instructions: Family Physicians / Practices, Ice Packs ([facility]), Low Back Pain ([facility]), Oral Narcotic Medication ([facility]) Additional Instructions: Use ice to your back. See the referral doctor in follow up. Please return here for increased pain, weakness or other problems or other concerns. Your blood pressure was too high - remember it is important to keep your blood pressure under control Prescriptions: Losartan Potassium [Cozaar] 25 mg PO DAILY #30 tablet I personally performed the services described in the documentation, reviewed and edited the documentation which was dictated to the scribe in my presence, and it accurately records my words and actions.
[2020-08-11 17:29] VITALS: BP 171/104
== END 2020-08-11 17:31 | disposition home or self-care (01) ==
LOC: ER 11:06
DX: M47.816 Spondylosis without myelopathy or radiculopathy, lumbar region (principal); M54.89 Other dorsalgia; I10 Essential (primary) hypertension; R31.9 Hematuria, unspecified; R42 Dizziness and giddiness; R06.02 Shortness of breath; E78.5 Hyperlipidemia, unspecified; E11.9 Type 2 diabetes mellitus without complications; F17.210 Nicotine dependence, cigarettes, uncomplicated
CPT/HCPCS: 36415; 70450; 74176; 80053; 81001; 82550; 85025; 87086; 99285